=== PATIENT | female | born 1970 | race Caucasian/White ===

== ENCOUNTER 2016-10-15 09:41 | Emergency (ER) | payer BC ==
[~2016-10-15] VITALS: Ht 165.1 cm; Wt 50.8 kg
[2016-10-15 10:03] VITALS: BP 94/62
== END 2016-10-15 10:05 | disposition home or self-care (01) ==
LOC: ER 09:44
DX: K62.3 Rectal prolapse (principal); J45.909 Unspecified asthma, uncomplicated
CPT/HCPCS: A4606; Z7610

== ENCOUNTER 2016-10-18 13:19 | Emergency (ER) | payer BC ==
[~2016-10-18] VITALS: Ht 162.6 cm; Wt 52.2 kg
[2016-10-18 13:22] VITALS: BP 116/91
--- NOTE | 2016-10-18 13:22 | NUR ---
" RECTAL PAIN" THE PATIENT WAS SEEN HERE 2 DAYS AGO FOR THE SAME ISSUE; REFERRED TO PCP. DX WITH RECTAL PROPLAPSE. RICK PT. AWAITING MD ORDER
== END 2016-10-18 14:38 | disposition home or self-care (01) ==
LOC: ER 13:20
DX: K62.3 Rectal prolapse (principal)
CPT/HCPCS: A4606; Z7610

== ENCOUNTER 2016-11-12 13:58 | Emergency (ER) | payer BC ==
[~2016-11-12] VITALS: Ht 165.1 cm; Wt 51.3 kg
[2016-11-12 14:02] VITALS: BP 115/60
--- NOTE | 2016-11-12 14:02 | NUR ---
SELF PRESENTS TO ED: RECTAL PAIN
--- NOTE | 2016-11-12 14:16 | NUR ---
DR GEORGE AT BEDSIDE FOR EVAL
== END 2016-11-12 14:35 | disposition home or self-care (01) ==
LOC: ER 14:00
DX: K62.3 Rectal prolapse (principal)
CPT/HCPCS: 45541; 99284; A4606; A6402; Z7610

== ENCOUNTER 2021-09-19 11:35 | Emergency (ER) | payer BC, MEDICAID ==
[~2021-09-19] VITALS: Ht 162.6 cm; Wt 50.3 kg
--- NOTE | 2021-09-19 11:54 | NUR ---
BIBS C/O LEFT HAND PAIN PAIN S/P POST FROM FLIGHT OF STAIRS 2WEEKS AGO, NO OBVIOUS DEFORMITY, AAOX3, BREATHING EVEN AND NON LABORED, AWAITING MD ORDERS
[2021-09-19 12:00] VITALS: BP 110/78
--- NOTE | 2021-09-19 12:19 | NUR ---
DIAMOND GRADER AT THE BEDSIDE
[2021-09-19] MEDS ORDERED: IBUP-1955 PO (13:18)
[2021-09-19] MEDS ORDERED: KETOROLAC TROMETHAMINE 15 MG/ML VIAL ONE (13:26)
[2021-09-19] MEDS ORDERED: KETOROLAC TROMETHAMINE INJ 30 MG/ML VIAL IM ONE (13:30)
--- NOTE | 2021-09-19 13:35 | NUR ---
Patient discharged to home in stable condition. Written and verbal after care instructions given. Patient verbalizes understanding of instruction.
== END 2021-09-19 13:36 | disposition home or self-care (01) ==
LOC: ER 11:45
DX: S62.615A Displaced fracture of proximal phalanx of left ring finger, initial encounter for closed fracture (principal); S00.83XA Contusion of other part of head, initial encounter; W10.9XXA Fall (on) (from) unspecified stairs and steps, initial encounter; Y93.89 Activity, other specified; Y92.89 Other specified places as the place of occurrence of the external cause; Y99.8 Other external cause status
CPT/HCPCS: 73130; 96372; 99283; J1885

== ENCOUNTER 2021-11-17 06:52 | Emergency (ER) | payer MEDICAID ==
[~2021-11-17] VITALS: Ht 162.6 cm; Wt 52.2 kg
[~2021-11-17 06:52] MED LIST: IBUP-1955 PO
--- NOTE | 2021-11-17 07:13 | NUR ---
BIBS C/O LEFT KNEE PAIN S/P MECH TRIP AND FALL. BRUISING NOTED. PATIENT ALERT AND ORIENTED X3. AMBULATORY WITH NON LABORED BREATHING SEEN BY MD AT TRIAGE.
--- NOTE | 2021-11-17 08:18 | NUR ---
Patient discharged to home in stable condition. Written and verbal after care instructions given. Patient verbalizes understanding of instruction.
[2021-11-17 08:21] VITALS: BP 122/70
== END 2021-11-17 08:22 | disposition home or self-care (01) ==
LOC: ER 06:55
DX: S80.02XA Contusion of left knee, initial encounter (principal); W01.0XXA Fall on same level from slipping, tripping and stumbling without subsequent striking against object, initial encounter; Y93.89 Activity, other specified; Y92.89 Other specified places as the place of occurrence of the external cause; Y99.8 Other external cause status
CPT/HCPCS: 73564-TC

== ENCOUNTER 2021-12-09 13:46 | Emergency (ER) | payer MEDICAID ==
[~2021-12-09] VITALS: Ht 162.6 cm; Wt 51.3 kg
--- NOTE | 2021-12-09 14:17 | NUR ---
acute left ankle pain and swelling- the patient suspects " spider bite"
[2021-12-09] MEDS ORDERED: IBUPROFEN 600 MG TABLET PO ONE (16:30)
[2021-12-09] MEDS ORDERED: IBUPROFEN 600 MG TABLET ONE (16:40)
[2021-12-09] MEDS ORDERED: IBUP-1955 PO (16:58)
[2021-12-09] MEDS ORDERED: CEPH500T PO (16:58)
--- NOTE | 2021-12-09 17:25 | NUR ---
Patient discharged to home in stable condition. Written and verbal after care instructions given. Patient verbalizes understanding of instruction.
[2021-12-09 17:26] VITALS: BP 123/77
== END 2021-12-09 17:26 | disposition home or self-care (01) ==
LOC: ER 14:02
DX: S90.562A Insect bite (nonvenomous), left ankle, initial encounter (principal); M25.472 Effusion, left ankle; Z79.1 Long term (current) use of non-steroidal anti-inflammatories (NSAID); W57.XXXA Bitten or stung by nonvenomous insect and other nonvenomous arthropods, initial encounter; Y93.89 Activity, other specified; Y92.89 Other specified places as the place of occurrence of the external cause; Y99.8 Other external cause status
CPT/HCPCS: 73610-TC